=== PATIENT | male | born 1965 | race Hispanic/Latino ===

== ENCOUNTER 2020-11-16 08:50 | Day surgery (SDC) | payer OTHER ==
[2020-11-13 14:30] VITALS: BP 158/112
[2020-11-16] VITALS (18 sets, daily range): BP systolic 95–148; BP diastolic 68–98
[~2020-11-16] VITALS: Ht 177.8 cm; Wt 92.6 kg
[2020-11-16] MEDS ORDERED: GENTAMICIN 80 MG/NS 100 ML PB 100 ML IV SCH (09:45)
[2020-11-16] MEDS ORDERED: CEFTRIAXONE SODIUM 1 GM IVP SCH (09:45)
[2020-11-16] MEDS ORDERED: LACTATED RINGERS 1000ML 1,000 ML IV ONE (09:51)
[2020-11-16] MEDS ORDERED: LIDOCAINE PF 2% 5ML ABBOJECT ONE (10:24)
[2020-11-16] MEDS ORDERED: DEXAMETHASONE SOD PHOSPHATE 10MG/ML 1ML VIAL ONE (10:24)
[2020-11-16] MEDS ORDERED: SUCCINYLCHOLINE 200MG/10ML SYR ONE (10:24)
[2020-11-16] MEDS ORDERED: PROPOFOL 10 MG/ML 20ML VIAL IV ONE (10:25)
[2020-11-16] MEDS ORDERED: MIDAZOLAM HCL 1 MG/ML 2ML VIAL ONE (10:25)
[2020-11-16] MEDS ORDERED: ONDANSETRON HCL 4 MG/2 ML VIAL ONE (10:25)
[2020-11-16] MEDS ORDERED: ROCURONIUM 10MG/1ML SYR 10 MG/ML ML ONE (10:25)
[2020-11-16] MEDS ORDERED: NEOSTIGMINE 5MG/5ML SYR IV ONE (10:25)
[2020-11-16] MEDS ORDERED: GLYCOPYRROLATE 1 MG/5 ML SYRINGE ONE (10:25)
[2020-11-16] MEDS ORDERED: FENTANYL CITRATE PF 50 MCG/1 ML 2ML VIAL ONE (10:26)
[2020-11-16] MEDS ORDERED: LEVO500T89 PO (10:45)
[2020-11-16] MEDS ORDERED: TERA10CA4 PO (10:45)
[2020-11-16] MEDS ORDERED: BUPR-317 PO (10:45)
[2020-11-16] MEDS ORDERED: FINA5TAB41 PO (10:45)
== END 2020-11-16 14:45 | disposition home or self-care (01) ==
LOC: DAH 08:50
PROVIDERS: ATTEND Urology
DX: R97.20 Elevated prostate specific antigen [PSA] (principal); N40.0 Benign prostatic hyperplasia without lower urinary tract symptoms; I10 Essential (primary) hypertension; Z20.828 Contact with and (suspected) exposure to other viral communicable diseases
CPT/HCPCS: 55706; 93005; A4215 ×2; A4216; A4221; A4222; A4223 ×2; A4510; A4600; A6260; C9803; J0330; J0696; J1100; J1580; J2001; J2250; J2405; J2704; J2710; J3010; J3490; J7120; U0003; 76942

== ENCOUNTER 2021-08-02 08:40 | Day surgery (SDC) | payer OTHER ==
[2021-07-27 11:20] LABS: EOSINOPHILS % (AUTO) 2.9 % (0.0-8.0); HEMATOCRIT 48.4 % (42-54); LYMPHOCYTES % (AUTO) 29.4 % (21.0-51.0); MEAN CORPUSCULAR HEMOGLOBIN 30.8 pg (27.0-33.0); MEAN CORPUSCULAR HGB CONC 33.7 g/dL (32.0-36.0); MEAN CORPUSCULAR VOLUME 91.5 fL (79-99); NEUTROPHILS % (AUTO) 56.3 % (40.0-77.0); PLATELET COUNT (AUTO) 208 K/uL (130-400); RED BLOOD CELL COUNT(AUTO) 5.29 MIL/uL (4.50-6.20); RED CELL DISTRIBUTION WIDTH 12.3 % (11.0-15.5); WHITE BLOOD COUNT (AUTO) 7.2 K/uL (4.8-10.8)
[2021-07-27 11:23] LABS: APPEARANCE,URINE Clear (CLEAR); BILIRUBIN,URINE Negative (NEGATIVE); COLOR,URINE Yellow (YELLOW); GLUCOSE, URINE (UA) Negative (NEGATIVE); KETONES,URINE Negative (NEGATIVE); LEUKOCYTE ESTERASE ,URINE Negative (NEGATIVE); NITRATE,URINE Negative (NEGATIVE); OCCULT BLOOD,URINE Negative (NEGATIVE); PH,URINE 6.5 (5.0-8.0); PROTEIN,URINE Negative (NEGATIVE)
[2021-07-27 11:32] LABS: CREATININE 1.2 mg/dL (0.5-1.5); POTASSIUM 4.5 mmol/L (3.5-5.1)
[2021-07-27 11:57] LABS: INR 0.99 (0.85-1.15); PROTHROMBIN TIME 10.8 SEC (9.6-11.6)
[2021-08-01 11:50] VITALS: BP 168/89
[2021-08-02] VITALS (17 sets, daily range): BP systolic 111–152; BP diastolic 69–93
[~2021-08-02] VITALS: Ht 152.4 cm; Wt 89.9 kg
[~2021-08-02 08:40] MED LIST: ASCO100031 PO; BUPR-317 PO; FINA5TAB41 PO; FISH12002 PO; GENTAMICIN 80 MG/NS 100 ML PB 100 ML IV SCH; LACT1CAP81 PO; LEVO500T89 PO; QUERCETIN PO; TERA10CA4 PO; VITAMIN B3 PO; ZINC50TA64 PO
[2021-08-02] MEDS ORDERED: LACTATED RINGERS 1000ML 1,000 ML IV ONE (09:08)
[2021-08-02] MEDS: CEFTRIAXONE 1G VIAL IVP SCH ×2 (09:38→11:25)
[2021-08-02] MEDS ORDERED: PROPOFOL 10 MG/ML 20ML VIAL IV ONE ×2 (11:27→11:35)
[2021-08-02] MEDS ORDERED: MIDAZOLAM HCL 1 MG/ML 2ML VIAL ONE ×2 (11:27→11:34)
[2021-08-02] MEDS ORDERED: LIDOCAINE HCL 2% PF 20 ML JEL DISP.SYRIN MM ONE (11:29)
== END 2021-08-02 13:30 | disposition home or self-care (01) ==
LOC: DAH 08:40
PROVIDERS: ATTEND Urology
DX: R97.20 Elevated prostate specific antigen [PSA] (principal); Z20.822 Contact with and (suspected) exposure to COVID-19; N40.0 Benign prostatic hyperplasia without lower urinary tract symptoms; I10 Essential (primary) hypertension; Z79.01 Long term (current) use of anticoagulants
CPT/HCPCS: 36415; 55700; 76872; 80048; 81003; 85025; 85610; 85730; 87088; 87635; 93005; A4215 ×2; A4221; A4222; A4223; A4600; A4649; A4663; A6260; C9803; J0696; J1580; J2250 ×2; J2704 ×2; J7120